=== PATIENT | male | born 2000 | race Caucasian/White ===

== ENCOUNTER 2023-02-17 13:53 | Emergency (ER) | payer BC, MEDICAID ==
[~2023-02-17] VITALS: Ht 182.9 cm; Wt 113.4 kg
[2023-02-17 14:12] VITALS: BP_SYST 137
--- NOTE | 2023-02-17 16:00 | NUR ---
Patient to ER bed H1 to gown for evaluation. Side rails up. Report given to KATHY DAVIDSON.
--- NOTE | 2023-02-17 16:25 | NUR ---
Patient BIB mother from home
[2023-02-17] MEDS ORDERED: ONDANSETRON 4 MG ODT TAB PO ONE (16:30)
--- NOTE | 2023-02-17 16:41 | NUR ---
ER DR. DIAZ AT THE BEDSIDE EXAMINING PT
--- NOTE | 2023-02-17 16:45 | NUR ---
UA taken to lab
[2023-02-17 16:58] LABS: BASOPHILS % (AUTO) 0.2 % (0.0-2.0); HEMATOCRIT 44.3 % (36-54); LYMPHOCYTES # (AUTO) 0.9 K/uL (1.0-5.5); LYMPHOCYTES % (AUTO) 5.6 % (20.5-51.5); MEAN CORPUSCULAR HEMOGLOBIN 30 pg (27-31); MEAN CORPUSCULAR HGB CONC 34 % (32-36); MEAN CORPUSCULAR VOLUME 90 fL (79.0-98.0); MONOCYTES # (AUTO) 0.5 K/uL (0.0-1.0); MONOCYTES % (AUTO) 3.3 % (1.7-9.3); NEUTROPHILS % (AUTO) 90.9 % (40.0-70.0); PLATELET COUNT (AUTO) 373 K/uL (130-430); RED BLOOD CELL COUNT(AUTO) 4.95 MIL/uL (4.2-6.2); RED CELL DISTRIBUTION WIDTH 13.5 % (9.0-15.0); WHITE BLOOD COUNT (AUTO) 16.5 K/uL (4.8-10.8)
--- NOTE | 2023-02-17 17:03 | NUR ---
1 4mg Zofran ODT given per Dr. Suarez order. Patient denies allergies and approved of administration prior to taking.
[2023-02-17 17:04] LABS: BLOOD, URINE 3+ (NEGATIVE); CLARITY/URINE CLEAR (CLEAR); GLUCOSE,URINE NEGATIVE (NEGATIVE); KETONES,URINE 3+ (NEGATIVE); LEUKOCYTE ESTERASE ,URINE NEGATIVE (NEGATIVE); NITRITE, URINE NEGATIVE (NEGATIVE); PH,URINE 6.5 (5.0-8.0); PROTEIN URINE 2+ (NEGATIVE)
[2023-02-17 17:06] LABS: CALCIUM 9.9 mg/dL (8.4-11.0); CREATININE 1.22 mg/dL (0.55-1.30)
[2023-02-17 17:10] LABS: ALBUMIN 5.1 g/dL (3.4-4.8); TOTAL BILIRUBIN 1.1 mg/dL (0.0-1.0)
[2023-02-17 17:15] LABS: BILIRUBIN,URINE 2+ (NEGATIVE); COLOR,URINE AMBER (YELLOW)
[2023-02-17 17:16] LABS: BACTERIA,URINE FEW /HPF (None Seen); MUCUS,URINE 2+ /LPF (None Seen); WBC,URINE 0-3 /HPF (0-3)
[2023-02-17 17:17] LABS: BARBITURATE, URINE NEGATIVE (NEG <=200); BENZODIAZEPINE, URINE NEGATIVE (NEG <=150); CANNABINOID, URINE POSITIVE (NEG <=50); COCAINE, URINE NEGATIVE (NEG <=150); METHAMPHETAMINES SCREEN,URINE NEGATIVE (NEG <=500); OPIATE, URINE NEGATIVE (NEG <=100); PHENCYCLIDINE SCREEN,URINE NEGATIVE (NEG <=25); UR TRICYCLIC ANTIDEPRESSANTS NEGATIVE (NEG <=300); URINE AMPHETAMINE NEGATIVE (NEG <=500); URINE METHADONE NEGATIVE (NEG <=200); URINE OXYCODONE SCREEN NEGATIVE (NEG <=100); URINE PROPOXYPHENE SCREEN NEGATIVE (NEG <=300)
[2023-02-17] MEDS ORDERED: HALOPERIDOL LACTATE 5 MG/ML VIAL IM ONE (18:00)
--- NOTE | 2023-02-17 18:01 | NUR ---
Patient given 2.5mg of Haldol im in right deltoid. Patient denies allergies, patient agreed to medication prior to administration. Patient tolerated well.
[2023-02-17] MEDS ORDERED: ONDA-8 TL (18:14)
[2023-02-17] MEDS ORDERED: DICY10CA13 PO (18:16)
[2023-02-17] MEDS ORDERED: PEPTAB PO (18:16)
--- NOTE | 2023-02-17 18:30 | NUR ---
Patient given written and verbal discharge instructions and verbalizes understanding. ER MD Suarez discussed with patient the results and treatment provided. Patient in stable condition. ID arm band removed. Rx of Zofran given. Patient educated on pain management and to follow up with PMD. Opportunity for questions provided and answered. Medication side effect fact sheet provided.
[2023-02-17 18:31] VITALS: BP_SYST 123
== END 2023-02-17 18:42 | disposition home or self-care (01) ==
LOC: SED 13:53
DX: A05.9 Bacterial foodborne intoxication, unspecified (principal); R11.2 Nausea with vomiting, unspecified; E86.0 Dehydration; K21.9 Gastro-esophageal reflux disease without esophagitis; J45.909 Unspecified asthma, uncomplicated; F12.90 Cannabis use, unspecified, uncomplicated; Z79.899 Other long term (current) drug therapy
CPT/HCPCS: 99283; 80307; 80053; 83690; 85025; 36415; 96372; 81000; Q0162; J1630

== ENCOUNTER 2023-12-05 15:07 | Emergency (ER) | payer BC ==
[~2023-12-05] VITALS: Ht 180.3 cm; Wt 98.0 kg
[~2023-12-05 15:07] MED LIST: DICY-14 PO; ONDA-8 TL; PEPTAB PO
[2023-12-05 15:31] VITALS: BP_SYST 133; PULSE 115; RESP 18; TEMP 98.5; O2SAT 96
[2023-12-05 16:13] LABS: HEMOGLOBIN 14.8 g/dL (14.0-18.0); LYMPHOCYTES # (AUTO) 1.9 K/uL (1.0-5.5); MEAN CORPUSCULAR VOLUME 89 fL (79.0-98.0); MONOCYTES # (AUTO) 0.9 K/uL (0.0-1.0); WHITE BLOOD COUNT (AUTO) 11.5 K/uL (4.8-10.8)
[2023-12-05 16:20] LABS: BASOPHILS % (AUTO) 0.3 % (0.0-2.0); EOSINOPHILS % (AUTO) 0.1 % (0.0-4.0); LYMPHOCYTES % (AUTO) 16.7 % (20.5-51.5); MEAN CORPUSCULAR HEMOGLOBIN 31 pg (27-31); MEAN CORPUSCULAR HGB CONC 35 % (32-36); MONOCYTES % (AUTO) 7.4 % (1.7-9.3); NEUTROPHILS # (AUTO) 8.7 K/uL (1.8-7.7); NEUTROPHILS % (AUTO) 75.5 % (40.0-70.0); PLATELET COUNT (AUTO) 410 K/uL (130-430); RED BLOOD CELL COUNT(AUTO) 4.73 MIL/uL (4.2-6.2); RED CELL DISTRIBUTION WIDTH 13.5 % (9.0-15.0)
[2023-12-05 16:47] LABS: ALBUMIN 4.8 g/dL (3.4-4.8); BILIRUBIN,DIRECT 0.3 mg/dL (0.0-0.3); CALCIUM 9.8 mg/dL (8.4-11.0); CREATININE 1.3 mg/dL (0.55-1.30); POTASSIUM 3.6 mmol/L (3.5-5.1); TOTAL BILIRUBIN 1.2 mg/dL (0.0-1.0); TOTAL PROTEIN, SERUM 9.3 g/dL (6.4-8.3)
[2023-12-05] MEDS ORDERED: ONDANSETRON HCL 4 MG/2 ML VIAL IVP ONE ×2 (17:30→19:15)
[2023-12-05] MEDS ORDERED: NACL 0.9% 1,000 ML IV ONE (17:30)
[2023-12-05 17:43] LABS: BILIRUBIN,URINE 2+ (NEGATIVE); BLOOD, URINE 3+ (NEGATIVE); COLOR,URINE YELLOW (YELLOW); GLUCOSE,URINE NEGATIVE (NEGATIVE); KETONES,URINE 3+ (NEGATIVE); LEUKOCYTE ESTERASE ,URINE NEGATIVE (NEGATIVE); NITRITE, URINE NEGATIVE (NEGATIVE); PH,URINE 6.5 (5.0-8.0); PROTEIN URINE 1+ (NEGATIVE); UROBILINOGEN,URINE 0.2 (0.2-1.0)
[2023-12-05 18:02] LABS: CLARITY/URINE HAZY (CLEAR)
[2023-12-05 18:20] LABS: BACTERIA,URINE FEW /HPF (None Seen); RBC,URINE 20-50 /HPF (0-3); WBC,URINE 0-3 /HPF (0-3)
[2023-12-05 18:21] LABS: MUCUS,URINE 3+ /LPF (None Seen)
[2023-12-05 18:49] VITALS: BP_SYST 128; PULSE 83; RESP 18; TEMP 98.9; O2SAT 100
[2023-12-05] MEDS ORDERED: ONDA-8 TL (19:14)
== END 2023-12-05 19:30 | disposition home or self-care (01) ==
LOC: SED 15:07
DX: K85.90 Acute pancreatitis without necrosis or infection, unspecified (principal); R11.2 Nausea with vomiting, unspecified; J45.909 Unspecified asthma, uncomplicated; K21.9 Gastro-esophageal reflux disease without esophagitis; Z79.899 Other long term (current) drug therapy
CPT/HCPCS: 99285; 74176; 96374; 96361; 80076; 80048; 81001; 83690; 85025; 36415; 76376; 81000; 81015; J2405; J7030